=== PATIENT | male | born 1970 | race Two or more races ===

== ENCOUNTER 2018-12-26 10:58 | Inpatient (IN) | payer MEDICAID ==
[~2018-12-26] VITALS: Ht 180.3 cm; Wt 112.5 kg
[2018-12-26 11:00] VITALS: BP 135/81
--- NOTE | 2018-12-26 11:20 | NUR ---
AIR INTERCEPT CONTROLLER NOTES RECEIVED PATIENT FROM [facility], DIRECT ADMIT. PATIENT IS AMBULATORY WITH ASSIST. DX OF CELLULITIS. WOUND ON PLANTAR BIG TOE. PATIENT IS A/OX4, ABLE TO MAKE NEEDS KNOWN. NOT IN ANY FORM OF DISTRESS. NO SOB. DENIED PAIN AT THIS TIME. TOLERATING ROOM AIR. VS STABLE. IV ACCESS ON RIGHT AC GAUGE 20, INTACT AND PATENT. KEPT PATIENT SAFE AND COMFORTABLE. ORIENTED THE PATIENT IN THE ROOM, TAUGHT HOW TO USE CALL LIGHT, INSTRUCTED TO CALL NURSE FOR ASSISTANCE. NO NEEDS AT THE MOMENT. BED IN LOW/LOCKED POSIITON, SIDERAILS UPX2, CALL LIGHT IN REACH. WILL CONTINUE TO MONIOTR ACCORDINGLY.
--- NOTE | 2018-12-26 11:30 | NUR ---
RN NOTES ALL BELONGINGS CHECK. PHOTOS TAKEN ON WOUND ON RIGHT TOE. PATIENT STATED NO OTHER WOUND BESIDES THE TOE. REFUSED BODY CHECK. REFUSED TO CHANGE TO HOSPITAL GOWN AT THIS TIME, STILL ON HIS REGULAR CLOTHES.
[2018-12-26] MEDS ORDERED: MAGNESIUM HYDROXIDE 30 ML UDC PO PRN (12:00)
[2018-12-26] MEDS ORDERED: Z GUARD REMEDY 2 OZ OINT TP PRN (12:00)
[2018-12-26] MEDS ORDERED: ACETAMINOPHEN 325 MG TABLET PO PRN (12:00)
[2018-12-26] MEDS ORDERED: MAG HYDROX/AL HYDROX/SIMETH 30 ML UDC PO PRN (12:00)
[2018-12-26] MEDS ORDERED: ZOLPIDEM TARTRATE 5 MG TABLET PO PRN (12:00)
[2018-12-26] MEDS ORDERED: ONDANSETRON HCL/PF 4 MG/2 ML VIAL IVP PRN (12:00)
[2018-12-26 12:34] LABS: BASOPHILS % (AUTO) 0.2 % (0.0-2.0); EOSINOPHILS % (AUTO) 0.5 % (0.0-6.0); HEMATOCRIT 48 % (39-51); HEMOGLOBIN 16.3 g/dL (13.5-17.5); LYMPHOCYTES # (AUTO) 1.3 /CMM (0.8-4.8); LYMPHOCYTES % (AUTO) 18.8 % (20.0-44.0); MEAN CORPUSCULAR HGB CONC 34 g/dl (31.0-36.0); MEAN CORPUSCULAR VOLUME 84 fL (80-96); MONOCYTES # (AUTO) 0.7 /CMM (0.1-1.30); MONOCYTES % (AUTO) 10.3 % (2.0-12.0); NEUTROPHILS # (AUTO) 4.9 /CMM (1.8-8.9); NEUTROPHILS % (AUTO) 70.2 % (43.0-81.0); PLATELET COUNT (AUTO) 174 /CMM (150-450); RED BLOOD CELL COUNT(AUTO) 5.75 MIL/uL (4.5-6.0)
[2018-12-26 12:49] LABS: ALBUMIN 3.3 g/dL (3.4-5.0); BILIRUBIN,TOTAL 0.7 mg/dL (0.2-1.0); CREATININE 1.3 mg/dL (0.6-1.3); MAGNESIUM 1.9 mg/dL (1.8-2.4); PHOSPHORUS 2.9 mg/dL (2.5-4.9); POTASSIUM 3.5 mmol/L (3.5-5.1)
[2018-12-26] MEDS ORDERED: FEE PK DOSING 1 MIN EA MC ONE (12:50)
[2018-12-26] MEDS: ZOSYN IVPB 3.375 G in IV D5W 50ml IV SCH ×2 (14:13→18:20)
[2018-12-26] MEDS: HYDROCODONE/APAP 5/325MG 1 EACH TABLET PO PRN (14:13)
[2018-12-26 14:15] LABS: APPEARANCE,URINE CLEAR (CLEAR); BILIRUBIN,URINE NEGATIVE (NEGATIVE); BLOOD, URINE NEGATIVE Ery/uL (NEGATIVE); COLOR,URINE YELLOW (YELLOW); KETONES,URINE NEGATIVE (NEGATIVE); LEUKOCYTE ESTERASE ,URINE 1+ (NEGATIVE); NITRITE, URINE NEGATIVE (NEGATIVE); PROTEIN,URINE NEGATIVE (NEGATIVE); UGLUCOSE NEGATIVE (NEGATIVE)
[2018-12-26 14:16] LABS: THYROID STIMULATING HORMONE 1.118 uIU/mL (0.358-3.74)
[2018-12-26 14:35] LABS: BACTERIA,URINE 1+ /HPF (None Seen)
[2018-12-26] MEDS ORDERED: DEXTROSE 50%-WATER 50 ML DISP.SYRIN IV PRN (15:00)
[2018-12-26] MEDS: VANCOMYCIN 1.25 GM in IV D5W 500 ML IV SCH ×2 (15:14→22:08)
[2018-12-26 16:00] VITALS: BP 131/74
--- NOTE | 2018-12-26 17:00 | NUR ---
MRSA SWAB DONE, CALL LAB FOR TUBE MOUNTER
--- NOTE | 2018-12-26 18:00 | NUR ---
WOUND CULTURE COLLECTED
[2018-12-26] MEDS: BLOOD SUGAR DIAGNOSTIC 1 EACH STRIP IN SCH ×2 (18:19→22:07)
--- NOTE | 2018-12-26 19:00 | NUR ---
RN CLOSING NOTES PATIENT STABLE CONDITION. ALL NEEDS ATTENDED AND PROVIDED. ALL DUE MEDICATIONS GIVEN ORDERED. ASSISTED WITH ADLS. KEPT PATIENT SAFE AND COMFORTABLE. BED IN LOW/LOCKED POSITION, SIDERAILS UPX2, CALL LIGHT IN REACH. ENDORSED TO NIGHT RN FOR DEYANIRA.
--- NOTE | 2018-12-26 19:20 | NUR ---
RN INITIAL NOTES: RECEIVED REPORT FROM EMERY VU. PT IN BED, AWAKE, A/O X4, ON RA DENIES ANY PAIN OR DISCOMFORT AT THIS TIME. SEEN BY DR PEACE, WOUND CULTURE COLLECTED BY SENT TO LAB. DISCUSSED PLAN OF CARE FOR TONIGHT. IV ACCESS PATENT AND FLUSHING WELL, ON HL. RIGHT GREAT TOE COVERED WITH DRESSING, C/D/I. SAFETY PRECAUTIONS FOR FALL INITIATED, CALL LIGHT IN REACH, WILL CONTINUE MONITORING PT.
[2018-12-26 20:00] VITALS: BP 135/80
[2018-12-26 20:10] VITALS: BP 155/80
--- NOTE | 2018-12-26 22:08 | NUR ---
ACCU CHECK 84: BLOOD SUGAR 84, NO INSULIN GIVEN PER SLIDING SCALE, WILL MONITOR FOR ANY S/S OF HYPOGLYCEMIA
[2018-12-27] MEDS: ZOSYN IVPB 3.375 G in IV D5W 50ml IV SCH ×4 (00:09→18:08)
--- NOTE | 2018-12-27 03:20 | NUR ---
RN NOTES: SOUND ASLEEP, RESPIRATIONS EVEN AND UNLABORED, APPEARS COMFORTABLE. WILL CONTINUE MONITORING PT
--- NOTE | 2018-12-27 05:35 | NUR ---
RN NOTES: LAB DRAWN FOR VANCO TROUGH
[2018-12-27 05:44] LABS: BASOPHILS % (AUTO) 0.3 % (0.0-2.0); EOSINOPHILS % (AUTO) 0.6 % (0.0-6.0); HEMATOCRIT 51 % (39-51); HEMOGLOBIN 17.1 g/dL (13.5-17.5); LYMPHOCYTES # (AUTO) 1.5 /CMM (0.8-4.8); MEAN CORPUSCULAR HGB CONC 33 g/dl (31.0-36.0); MEAN CORPUSCULAR VOLUME 84 fL (80-96); MONOCYTES # (AUTO) 0.7 /CMM (0.1-1.30); MONOCYTES % (AUTO) 10.8 % (2.0-12.0); NEUTROPHILS # (AUTO) 4.5 /CMM (1.8-8.9); NEUTROPHILS % (AUTO) 66.3 % (43.0-81.0); PLATELET COUNT (AUTO) 185 /CMM (150-450); RED BLOOD CELL COUNT(AUTO) 6.11 MIL/uL (4.5-6.0); WHITE BLOOD COUNT (AUTO) 6.8 K/uL (4.3-11.0)
--- NOTE | 2018-12-27 06:14 | NUR ---
RN NOTES: FOLLOWED UP REGARDING VANCO TROUGH RESULT, SPOKED WITH LAB/CHEMISTRY, STATED "STILL RUNNING TEST"
[2018-12-27 06:18] LABS: CALCIUM, SERUM 8.3 mg/dL (8.5-10.1); CREATININE 1.1 mg/dL (0.6-1.3); MAGNESIUM 1.9 mg/dL (1.8-2.4)
--- NOTE | 2018-12-27 06:42 | NUR ---
RN NOTES: FOLLOWED UP VANCO TROUGH AGAIN, PER LAB STILL RUNNING TEST
--- NOTE | 2018-12-27 06:52 | NUR ---
VANCO TROUGH: RESULT IS 14, WILL ADMINISTER THE VANCOMYCIN NOW
[2018-12-27] MEDS: VANCOMYCIN 1.25 GM in IV D5W 500 ML IV SCH ×3 (07:00→21:19)
--- NOTE | 2018-12-27 07:15 | NUR ---
MS RN NOTES PATIENT IN BED ALERT ORIENTED X 4. NO ACUTE DISTRESS NOTED. BREATHING UNLABORED. NO SOB NOTED. IV ACCESS PATENT AND INTACT, NO REDNESS OR SWELLING NOTED. SAFETY MEASURES IN PLACE. CALL LIGHT WITHIN REACH. WILL CONTINUE TO MONITOR ACCORDINGLY.
--- NOTE | 2018-12-27 07:19 | NUR ---
RN CLOSING NOTES: PT AWAKE, DENIES ANY PAIN OR DISCOMFORT AT THIS TIME. IV ACCESS REMAINS PATENT AND FLUSHING WELL, INFUSING WITH VANCOMYCIN 1.25GM IV AT 250ML/HR. NO S/S OF IV INFILTRATION NOTED. RIGHT FOOT REMAINS OFFLOADED ON PILLOWS. DRESSING REMAINS C/D/I. NO ACTIVE BLEEDING NOTED. AWAITING WOUND CULTURE RESULT. PT FOR MRI OF RIGHT FOOT WITH CONTRAST, CONSENT SECURED, MRI CHECKLIST COMPLETED AND SIGNED BY PT. VS REMAINS STABLE, NEEDS ATTENDED. SAFETY PRECAUTIONS FOR FALL REMAINS ENGAGED, CALL LIGHT IN REACH, WILL ENDORSE TO DAY RN FOR CONTINUITY OF CARE.
[2018-12-27 08:00] VITALS: BP 131/74
[2018-12-27] MEDS: BLOOD SUGAR DIAGNOSTIC 1 EACH STRIP IN SCH ×4 (08:19→21:22)
[2018-12-27] MEDS: PANTOPRAZOLE 40 MG TABLET.DR PO SCH (08:19)
--- NOTE | 2018-12-27 09:11 | NUR ---
WOUND CARE CONSULT: PT WAS SEEN BY DR FRANZ THIS AM FOR FOOT WOUND. DEFER TO DPM FOR WOUND TREATMENT PLAN. WILL SEE PRN. PT IS CONTINENT AND INDEPENDENT WITH BED MOBILITY.
[2018-12-27] MEDS: LACTOBACILLUS RHAMNOSUS GG 1 EACH CAP.SPRINK PO SCH ×2 (10:33→17:27)
--- NOTE | 2018-12-27 14:15 | NUR ---
MS RN NOTES DEBRIDEMENT OF RIGHT FOOT DONE BY DR FRANZ, PATIENT TOLERATED WELL.
[2018-12-27 16:00] VITALS: BP 106/68
[2018-12-27] MEDS: INSULIN REGULAR, HUMAN 100 UNIT/ML 3 ML VIAL SQ PRN ×2 (18:16→21:32)
--- NOTE | 2018-12-27 19:00 | NUR ---
MS RN NOTES PATIENT IN BED ALERT ORIENTED X 4. NO ACUTE DISTRESS NOTED. BREATHING UNLABORED. NO SOB NOTED. IV ACCESS PATENT AND INTACT, NO REDNESS OR SWELLING NOTED. DUE MEDICATIONS GIVEN, NO ASE NOTED. NEEDS ATTENDED AND ANTICIPATED. DRESSING ON THE RIGHT FOOT CLEAN, DRY AND INTACT. KEPT CLEAN DRY AND COMFORTABLE. SAFETY MEASURES IN PLACE. CALL LIGHT WITHIN REACH. WILL ENDORSE TO NIGHT NURSE FOR CONTINUITY OF CARE.
--- NOTE | 2018-12-27 19:00 | NUR ---
RN MS OPENING NOTES RECEIVED PATIENT IN BED AWAKE ALERT AND ORIENTED X 4, RESPIRATIONS EVEN AND UNLABORED WITH EQUAL RISE AND FALL OF CHEST , DENIES ANY PAIN OR DISCOMFORT AT THIS TIME, IV SITE TO RIGHT WRIST #20 G INTACT AND PATENT. NO REDNESS, NO INFILTRATION PRESENT, RIGHT FOOT DRESSING REMAINS CLEAN, DRY AND INTACT. ORIENTED TO STAFF AND CALL LIGHT AND KEPT WITHIN REACH, ALL NEEDS ATTENDED AT THIS TIME, WILL CONTINUE TO MONITOR AND ATTEND TO NEEDS.
[2018-12-27 20:00] VITALS: BP 137/93
[2018-12-27 20:20] VITALS: BP 137/93
[2018-12-27] MEDS: HYDROCODONE/APAP 5/325MG 1 EACH TABLET PO PRN (20:22)
--- NOTE | 2018-12-27 20:22 | NUR ---
RN MS NOTES PATIENT STATES HE HAS PAIN TO LEFT LEG, ANKLE "FEELING ACHY AND CRAMPY". REQUESTING FOR PAIN MEDICATION , NORCO PRN OFFERED, PATIENT AGREED TO TAKE GIVEN ORDERED. VS WNL WILL CONTINUE TO MONITOR FOR EFFECTIVENESS.
--- NOTE | 2018-12-27 22:00 | NUR ---
RN MS NOTES PATIENT REFUSED INSULIN PER SLIDING SCALE X3 STATES " I'D RATHER NOT TAKE IT , I HAVE NEVER TAKEN IT BEFORE" EXPLAINED RISKS AND BENEFITS. WILL CONTINUE TO MONITOR FOR ANY CHANGES.
[2018-12-28] MEDS: ZOSYN IVPB 3.375 G in IV D5W 50ml IV SCH ×3 (00:47→12:52)
[2018-12-28] MEDS: VANCOMYCIN 1.25 GM in IV D5W 500 ML IV SCH (05:48)
--- NOTE | 2018-12-28 06:18 | NUR ---
rn ms notes patient refused to have insulin accu-check 143, states " i don't take any insulin , i will pass".
[2018-12-28] MEDS: BLOOD SUGAR DIAGNOSTIC 1 EACH STRIP IN SCH ×2 (06:24→12:52)
[2018-12-28] MEDS: INSULIN REGULAR, HUMAN 100 UNIT/ML 3 ML VIAL SQ PRN (06:25)
--- NOTE | 2018-12-28 06:58 | NUR ---
RN MS CLOSING NOTES PATIENT IN BED AWAKE ALERT AND ORIENTED X 4, RESPIRATIONS EVEN AND UNLABORED WITH EQUAL RISE AND FALL OF CHEST , DENIES ANY PAIN OR DISCOMFORT AT THIS TIME, IV SITE TO RIGHT WRIST #20 G INTACT AND PATENT.ABX RUNNING ORDERED NO REDNESS, NO INFILTRATION PRESENT, RIGHT FOOT DRESSING REMAINS CLEAN, DRY AND INTACT. CALL LIGHT KEPT WITHIN REACH, ALL NEEDS ATTENDED AT THIS TIME, WILL CONTINUE TO MONITOR AND ATTEND TO NEEDS AND ENDORSE TO NEXT SHIFT.
[2018-12-28 08:00] VITALS: BP 126/76
[2018-12-28] MEDS: PANTOPRAZOLE 40 MG TABLET.DR PO SCH (08:05)
--- NOTE | 2018-12-28 09:00 | NUR ---
MS RN NOTES PATIENT STATED THAT HE WANTS TO GO HOME AGAINST MEDICAL ADVICE, RISK AND BENEFITS EXPLAINED. PATIENT CHANGED MIND AND SAID " I'LL WAIT FOR MY DOCTOR TO DISCHARGE ME ".
[2018-12-28] MEDS: LACTOBACILLUS RHAMNOSUS GG 1 EACH CAP.SPRINK PO SCH (09:31)
--- NOTE | 2018-12-28 13:34 | NUR ---
MS RN NOTES SEEN AND EVALUATED BY DR RYLEE SCHNEIDER , WOUND CARE DONE.
[2018-12-28] MEDS ORDERED: CEFAZOLIN 1 GM in IV NS 0.9% 50 ML IV SCH ×2 (14:00→15:00)
--- NOTE | 2018-12-28 14:15 | NUR ---
MS RN NOTES PICC LINE INSERTED BY PICC LINE NURSE MERI Montes De Oca ON LEFT UPPER ARM, SECURED WITH TRANSPARENT DRESSING.
--- NOTE | 2018-12-28 15:35 | NUR ---
MS RN NOTES SEEN AND EVALUATED BY DR TERE BURTON WITH NEW ORDERS MADE, NOTED AND CARRIED OUT.
[2018-12-28 16:00] VITALS: BP 143/95
--- NOTE | 2018-12-28 16:50 | NUR ---
MS RN NOTES PATIENT DISCHARGE HOME WITH HOME HEALTH WITH STABLE VITAL SIGNS. NO ACUTE DISTRESS NOTED. BREATHING UNLABORED. NO SOB NOTED. DISCHARGE INSTRUCTIONS GIVEN TO THE PATIENT INCLUDING FOLLOW UP WITH PRIMARY DOCTOR, INFECTIOUS DISEASE DOCTOR, VASCULAR SURGERY, PODIATRY IN 1 WEEK, HOME HEALTH FOR IV ANTIBIOTIC AND WOUND CARE, VERBALIZED UNDERSTANDING. ALL BELONGINGS ACCOUNTED FOR. IV ACCESS REMOVED ON RIGHT WRIST, NO BLEEDING, NO REDNESS, NO SWELLING NOTED. LEFT UPPER ARM PICC LINE PATENT, INTACT AND SECURED WITH TRANSPARENT DRESSING SIGNED AND DATED. CHEST XRAY PICC LINE PLACEMENT RESULT WILL BE FAXED BY [employer] TO [facility]. ALL BELONGINGS ACCOUNTED FOR. PATIENT REFUSED OTHER PHOTOS TAKEN, ONLY ALLOWED PHOTO TAKEN OF RIGHT GREAT TOE WOUND. ASSISTED TO THE LOBBY, PICKED UP VIA PRIVATE CAR IN STABLE CONDITION.
== END 2018-12-28 16:45 | disposition home health service (06) | DRG 344 ==
LOC: MEDSG2 10:58
PROVIDERS: ADMIT Student in an Organized Health Care Education/Training Program; ATTEND Internal Medicine
DX: M86.171 Other acute osteomyelitis, right ankle and foot (principal); E44.1 Mild protein-calorie malnutrition; G62.1 Alcoholic polyneuropathy; R73.03 Prediabetes; L97.518 Non-pressure chronic ulcer of other part of right foot with other specified severity; M86.671 Other chronic osteomyelitis, right ankle and foot; Z68.34 Body mass index [BMI] 34.0-34.9, adult; L97.519 Non-pressure chronic ulcer of other part of right foot with unspecified severity; L08.9 Local infection of the skin and subcutaneous tissue, unspecified; I73.9 Peripheral vascular disease, unspecified; B35.1 Tinea unguium
CPT/HCPCS: 36415; 36569; 71045-TC; 73718-TC; 80048-TC; 80053-TC; 80061-TC; 80202-TC; 81000-TC; 82962-TC; 83735-TC; 84100-TC; 84443-TC; 85025-TC; 85652-TC; 87040-TC; 87070-TC; 87081-TC; 87086-TC; A4216; G0378; J0690; J1815; J2543; J3370; J7040; J7060